=== PATIENT | female | born 1960 | race Caucasian/White ===

== ENCOUNTER → 2017-02-12 | Outpatient (CLI) | payer MEDICAID ==
[~2017-02-12] MED LIST: ASPI325T4 PO; ATOR10TA PO; BUPR150T73 PO; INSU100I13 SC; LISI-167 PO; METF10002 PO; MULT-516 PO; SITA1TBM4 PO
[2017-02-12 17:04] LABS: ASPARTATE AMINO TRANSFERASE 22 U/L (15-37); BLOOD UREA NITROGEN 19 mg/dL (7-18)
== END | disposition home or self-care (01) ==
LOC: STAR 15:35
PROVIDERS: ATTEND Urology
DX: Z01.818 Encounter for other preprocedural examination (principal); N20.0 Calculus of kidney
CPT/HCPCS: 36415; 80053; 81001; 87077; 87086; 93005

== ENCOUNTER → 2017-04-02 | Outpatient (CLI) | payer MEDICAID ==
[2017-04-02 13:57] LABS: PATH.CAST-FLAG NOT PRESENT; SPERM-FLAG NOT PRESENT; SRC-FLAG NOT PRESENT; XTAL-FLAG NOT PRESENT; YLC-FLAG NOT PRESENT
[2017-04-02 14:01] LABS: ASPARTATE AMINO TRANSFERASE 17 U/L (15-37); BLOOD UREA NITROGEN 9 mg/dL (7-18)
== END | disposition home or self-care (01) ==
LOC: STAR 12:56
PROVIDERS: ATTEND Urology
DX: Z01.818 Encounter for other preprocedural examination (principal); N20.0 Calculus of kidney
CPT/HCPCS: 36415; 80053; 81001; 87086

== ENCOUNTER 2017-04-14 11:35 | Day surgery (SDC) | payer MEDICAID ==
[~2017-04-14] VITALS: Ht 170.2 cm; Wt 57.1 kg
[~2017-04-14 11:35] MED LIST changes: +ASPI325T17 PO; -ASPI325T4 PO
[2017-04-14] MEDS ORDERED: FENTANYL PF 100 MCG/2ML ONE (12:07)
[2017-04-14] MEDS ORDERED: HYDROmorphone 1 MG/ML, 1ML ONE (12:08)
[2017-04-14] MEDS ORDERED: MIDAZOLAM 1 MG/ML, 2ML ONE (12:08)
[2017-04-14 12:09] VITALS: BP 125/84
[2017-04-14] MEDS ORDERED: LACTATED RINGERS 1,000 ML IV SCH (12:12)
[2017-04-14] MEDS ORDERED: ACETAMINOPHEN 325 MG TABLET PO PRN (12:30)
[2017-04-14] MEDS ORDERED: NEOSTIGMINE 1 MG/ML, 10ML ONE (12:30)
[2017-04-14] MEDS ORDERED: DEXAMETHASONE 4 MG/ML, 1ML ONE (12:30)
[2017-04-14] MEDS ORDERED: PROPOFOL 10 MG/ML, 20ML ONE (12:30)
[2017-04-14] MEDS ORDERED: FENTANYL PF 100 MCG/2ML IV PRN (12:30)
[2017-04-14] MEDS ORDERED: KETOROLAC 30 MG/1 ML IV PRN (12:30)
[2017-04-14] MEDS ORDERED: CEFAZOLIN 1,000 MG ONE (12:30)
[2017-04-14] MEDS ORDERED: HYDROmorphone 1 MG/ML, 1ML IV PRN (12:30)
[2017-04-14] MEDS ORDERED: ONDANSETRON 2MG/ML, 2ML ONE (12:30)
[2017-04-14] MEDS ORDERED: OXYcodone 5 MG/5 ML ORAL.SOL UDC PO PRN (12:30)
[2017-04-14] MEDS ORDERED: OMNIPAQUE 350 MG/ML, 50 ML BOTTLE ONE (13:57)
[2017-04-14] MEDS ORDERED: OXYcodone/APAP 5/325MG TABLET PO ONE (16:00)
== END 2017-04-14 16:25 ==
LOC: OUT 11:35
PROVIDERS: ATTEND Urology
DX: N20.1 Calculus of ureter (principal); I10 Essential (primary) hypertension; E11.9 Type 2 diabetes mellitus without complications; J44.9 Chronic obstructive pulmonary disease, unspecified; F19.10 Other psychoactive substance abuse, uncomplicated
CPT/HCPCS: 52356; 74420; 82962; C1726; C1758; C1769; C2617; J0690; J1100; J1170; J2250; J2405; J2704; J2710; J3010; J7120; Q9967

== ENCOUNTER 2017-08-10 06:43 | Day surgery (SDC) | payer MEDICAID ==
[~2017-08-10] VITALS: Ht 170.2 cm; Wt 55.6 kg
[2017-08-10 07:10] VITALS: BP 119/79
[2017-08-10] MEDS ORDERED: LACTATED RINGERS 1,000 ML IV SCH (07:12)
[2017-08-10] MEDS ORDERED: INSU100I34 SQ (07:18)
[2017-08-10] MEDS ORDERED: ASPI-496 PO (07:18)
[2017-08-10] MEDS ORDERED: OXYC5CAP2 PO (07:18)
[2017-08-10] MEDS ORDERED: RANI150T4 PO (07:18)
[2017-08-10] MEDS ORDERED: HYDR25CA PO (07:18)
[2017-08-10 07:32] LABS: HEMATOCRIT 30.9 % (34.6-47.8); HEMOGLOBIN 10.3 g/dL (11.7-16.4); WHITE BLOOD COUNT 8.6 x10^3/uL (3.4-10)
[2017-08-10] MEDS ORDERED: PROPOFOL 10 MG/ML, 20ML ONE (07:34)
[2017-08-10] MEDS ORDERED: ROCURONIUM 10 MG/ML,10ML ONE (07:37)
[2017-08-10] MEDS ORDERED: SUCCINYLCHOLINE 20 MG/ML, 10ML ONE (07:37)
[2017-08-10] MEDS ORDERED: MIDAZOLAM 1 MG/ML, 2ML ONE (07:39)
[2017-08-10] MEDS ORDERED: FENTANYL PF 100 MCG/2ML ONE (07:39)
[2017-08-10 07:43] LABS: ASPARTATE AMINO TRANSFERASE 73 U/L (15-37); BLOOD UREA NITROGEN 8 mg/dL (7-18)
[2017-08-10] MEDS ORDERED: ONDANSETRON 2MG/ML, 2ML ONE (07:57)
[2017-08-10] MEDS ORDERED: DEXAMETHASONE 4 MG/ML, 1ML ONE (07:57)
[2017-08-10] MEDS ORDERED: MEPERIDINE/PF 25MG/0.5ML IVPush PRN (08:00)
[2017-08-10] MEDS ORDERED: OXYcodone 5 MG/5 ML ORAL.SOL UDC PO PRN (08:00)
[2017-08-10] MEDS ORDERED: HYDROcodone/APAP 7.5-325MG/15ML UDC PO PRN (08:00)
[2017-08-10] MEDS ORDERED: ACETAMINOPHEN 325 MG TABLET PO PRN (08:00)
[2017-08-10] MEDS ORDERED: PROMETHAZINE 25 MG/ML, 1ML IV PRN (08:00)
[2017-08-10] MEDS ORDERED: MIDAZOLAM 1 MG/ML, 2ML IV PRN (08:00)
[2017-08-10] MEDS ORDERED: METOPROLOL 1 MG/ML, 5ML IV PRN (08:00)
[2017-08-10] MEDS ORDERED: hydrALAzine 20 MG/ML, 1ML IV PRN (08:00)
[2017-08-10] MEDS ORDERED: ALBUTEROL SULFATE 2.5 MG/3 ML NPPB PRN (08:00)
[2017-08-10] MEDS ORDERED: FENTANYL PF 100 MCG/2ML IV PRN (08:00)
[2017-08-10] MEDS ORDERED: EPHEDRINE 50 MG/ML, 1ML IVPush PRN (08:00)
[2017-08-10] MEDS ORDERED: LABETALOL 5MG/ML, 20ML IV PRN (08:00)
[2017-08-10] MEDS ORDERED: ONDANSETRON 2MG/ML, 2ML IVPush PRN (08:00)
[2017-08-10] MEDS ORDERED: HYDROmorphone 1 MG/ML, 1ML IV PRN (08:00)
[2017-08-10] MEDS ORDERED: METOCLOPRAMIDE 5 MG/ML, 2ML IV PRN (08:00)
[2017-08-10] MEDS ORDERED: EPHEDRINE 50 MG/ML, 1ML ONE (08:06)
[2017-08-10] MEDS ORDERED: ALBUTEROL HFA 90 MCG/SPRAY ONE (08:33)
== END 2017-08-10 11:00 ==
LOC: OUT 06:43
PROVIDERS: ATTEND Internal Medicine
DX: C25.0 Malignant neoplasm of head of pancreas (principal); K86.89 Other specified diseases of pancreas; K83.1 Obstruction of bile duct; K21.0 Gastro-esophageal reflux disease with esophagitis; I10 Essential (primary) hypertension; E11.9 Type 2 diabetes mellitus without complications
CPT/HCPCS: 36415; 43239; 43242; 80053; 82962; 85025; 88172; 88173; 88307; 93005; J0330; J1100; J2250; J2405; J2704; J3010; J7120

== ENCOUNTER → 2017-08-25 | Outpatient (CLI) | payer MEDICAID ==
[~2017-08-25] MED LIST changes: +ASPI-496 PO; +HYDR25CA PO; +INSU100I34 SQ; +OXYC5CAP2 PO; +RANI150T4 PO
== END | disposition home or self-care (01) ==
LOC: ROC 08:08
PROVIDERS: ATTEND Radiology Radiation Oncology
DX: C25.0 Malignant neoplasm of head of pancreas (principal); E11.9 Type 2 diabetes mellitus without complications; I10 Essential (primary) hypertension; F17.210 Nicotine dependence, cigarettes, uncomplicated; Z87.442 Personal history of urinary calculi; Z90.710 Acquired absence of both cervix and uterus
CPT/HCPCS: 99214; G0463

== ENCOUNTER → 2017-09-03 | Outpatient (CLI) | payer MEDICAID | END | disposition home or self-care (01) | LOC: PETCFH 07:35 | PROVIDERS: ATTEND Radiology Radiation Oncology | DX: C25.0 Malignant neoplasm of head of pancreas (principal); I10 Essential (primary) hypertension | CPT/HCPCS: 78815; A9552 ==

== ENCOUNTER 2017-09-28 11:28 | Day surgery (SDC) | payer MEDICAID ==
[~2017-09-28] VITALS: Ht 170.2 cm; Wt 48.2 kg
[2017-09-28] MEDS ORDERED: OXYC10TA6 PO (12:26)
[2017-09-28] MEDS ORDERED: MORP15TA3 PO (12:26)
[2017-09-28] MEDS ORDERED: UNKNOWN ANTIBIOTIC PO (12:26)
[2017-09-28] MEDS ORDERED: CHOL500050 PO (12:26)
[2017-09-28 12:27] VITALS: BP 95/69
[2017-09-28] MEDS ORDERED: LACTATED RINGERS 1,000 ML IV SCH (12:33)
[2017-09-28] MEDS ORDERED: DEXAMETHASONE 4 MG/ML, 1ML ONE (13:29)
[2017-09-28] MEDS ORDERED: PHENYLEPHRINE 10 MG/ML ONE (13:29)
[2017-09-28] MEDS ORDERED: ONDANSETRON 2MG/ML, 2ML ONE (13:29)
[2017-09-28] MEDS ORDERED: SUCCINYLCHOLINE 20 MG/ML, 10ML ONE (13:29)
[2017-09-28] MEDS ORDERED: FENTANYL PF 100 MCG/2ML ONE (13:30)
[2017-09-28] MEDS ORDERED: LIDOCAINE GEL 2%, 5ML ONE (13:31)
[2017-09-28] MEDS ORDERED: PROPOFOL 10 MG/ML, 20ML ONE ×2 (13:42→13:54)
[2017-09-28] MEDS ORDERED: OMNIPAQUE 350 MG/ML, 50 ML BOTTLE ONE (14:15)
[2017-09-28] MEDS ORDERED: hydrALAzine 20 MG/ML, 1ML IV PRN (14:30)
[2017-09-28] MEDS ORDERED: MEPERIDINE/PF 25MG/0.5ML IVPush PRN (14:30)
[2017-09-28] MEDS ORDERED: LABETALOL 5MG/ML, 20ML IV PRN (14:30)
[2017-09-28] MEDS ORDERED: FENTANYL PF 100 MCG/2ML IV PRN (14:30)
[2017-09-28] MEDS ORDERED: OXYcodone 5 MG/5 ML ORAL.SOL UDC PO PRN (14:30)
[2017-09-28] MEDS ORDERED: ALBUTEROL/IPRATROPIUM 2.5MG/0.5MG, 3 ML NPPB PRN (14:30)
[2017-09-28] MEDS ORDERED: HYDROmorphone 1 MG/ML, 1ML IV PRN (14:30)
[2017-09-28] MEDS ORDERED: MIDAZOLAM 1 MG/ML, 2ML IV PRN (14:30)
[2017-09-28] MEDS ORDERED: PROMETHAZINE 12.5 MG SUPP PR PRN (14:30)
[2017-09-28] MEDS ORDERED: ONDANSETRON 2MG/ML, 2ML IVPush PRN (14:30)
[2017-09-28] MEDS ORDERED: ACETAMINOPHEN 325 MG TABLET PO PRN (14:30)
[2017-09-28] MEDS ORDERED: PROMETHAZINE 25 MG/ML, 1ML IV PRN (14:30)
== END 2017-09-28 15:45 ==
LOC: OUT 11:28
DX: C25.9 Malignant neoplasm of pancreas, unspecified (principal); K83.1 Obstruction of bile duct; E11.9 Type 2 diabetes mellitus without complications; I10 Essential (primary) hypertension; K21.9 Gastro-esophageal reflux disease without esophagitis
CPT/HCPCS: 43276; 74328; 82962; J0330; J1100; J2370; J2405; J2704; J3010; J7120; Q9967; C1769; C1876

== ENCOUNTER → 2017-11-08 | Outpatient (CLI) | payer MEDICAID ==
[~2017-11-08] MED LIST changes: +CHOL500050 PO; +MORP15TA3 PO; +OMNIPAQUE 350 MG/ML, 100ML BOTTLE ONE; +OXYC10TA6 PO; +UNKNOWN ANTIBIOTIC PO
== END | disposition home or self-care (01) ==
LOC: CFH 13:43
PROVIDERS: ATTEND Internal Medicine Hematology & Oncology
DX: C25.0 Malignant neoplasm of head of pancreas (principal); C78.7 Secondary malignant neoplasm of liver and intrahepatic bile duct; D73.89 Other diseases of spleen
CPT/HCPCS: 74177; Q9967